=== PATIENT | male | born 1975 | race African-American/Black ===

== ENCOUNTER 2016-07-07 05:04 | Emergency (ER) | payer OTHER | END 2016-07-07 07:48 | disposition home or self-care (01) | LOC: TRA 05:04 | DX: S01.01XA Laceration without foreign body of scalp, initial encounter (principal); S01.81XA Laceration without foreign body of other part of head, initial encounter; X99.1XXA Assault by knife, initial encounter; Y92.009 Unspecified place in unspecified non-institutional (private) residence as the place of occurrence of the external cause | CPT/HCPCS: 99281; 99285; J1885 ==

== ENCOUNTER 2016-07-20 09:42 | Emergency (ER) | payer OTHER ==
[~2016-07-20] VITALS: Ht 180.3 cm; Wt 78.2 kg
[2016-07-20 10:11] VITALS: BP 109/78
== END 2016-07-20 10:55 | disposition home or self-care (01) ==
LOC: EME 09:42
DX: S01.01XD Laceration without foreign body of scalp, subsequent encounter (principal); Z48.02 Encounter for removal of sutures
CPT/HCPCS: 99281; 99284